=== PATIENT | female | born 1955 | race Hispanic/Latino ===

== ENCOUNTER 2017-06-26 09:13 | Outpatient (CLI) | payer OTHER ==
--- NOTE | 2017-06-26 12:09 | RAD ---
RIGHT SHOULDER THREE VIEWS: Comparison: 02-04-15 History: Pain. FINDINGS: There appears to be right rotator cuff repair and a remote right proximal humerus fracture. Previousl y noted lucency at the level of the greater tuberosity is not appreciated. There is a some sclerosis and remottling suggesting healing. No obvious dislocation. IMPRESSION: 1. Healed right greater tuberosity fracture. 2. Repair of a right rotator cuff. POS: [facility]
--- NOTE | 2017-06-26 15:02 | MRI ---
MR ARTHROGRAM RIGHT SHOULDER: DATE: 06/26/17. PROVIDED CLINICAL HISTORY: Right shoulder pain. FINDINGS: Comparison is made with the study dated 06/11/16. Interval postoperative changes of rotator cuff repair. Susceptibility artifact in the region of the greater tuberosity limits assessment. There is contrast containing fluid present within the subacrom ial/subdeltoid bursa that partially extends through the acromioclavicular interval. This appears to be on the basis of a small full-thickness partial width defect in the rotator interval medially near the posterior margin of the coracoid process. There is no evidence for a recurrent rotator cuff tear . The intraarticular long head biceps tendon is not visualized presumably on the basis of interval t enodesis. The glenoid labrum and glenohumeral articular cartilage appear preserved. Changes of interval acromi oplasty suspected. No focal concerning regional marrow or muscular signal abnormality apparent. IMPRESSION: 1. No evidence for recurrent full-thickness rotator cuff tear. 2. Small full-thickness partial width defect in the rotator interval. POS: OFF
== END 2017-06-26 09:14 | disposition home or self-care (01) ==
LOC: RAD 09:13
PROVIDERS: ATTEND Orthopaedic Surgery
DX: M25.511 Pain in right shoulder (principal); Z87.81 Personal history of (healed) traumatic fracture; Z98.890 Other specified postprocedural states
CPT/HCPCS: 23350

== ENCOUNTER 2017-08-10 13:26 | Outpatient (CLI) | payer OTHER ==
[2017-08-10 14:44] LABS: #Basophils 0.1 thou/uL (0.0-0.2); #Eosinphils 0.1 thou/uL (0.0-0.7); #Lymphocytes 3.3 thou/uL (1.20-3.40); #Monocytes 0.5 thou/uL (0.11-0.59); #Neutrophils 3.2 thou/uL (1.40-6.50); %Basophils 1.2 % (0.0-1.0); %Eosinophils 1.1 % (0.0-10.0); %Lymphocytes 46.7 % (21.0-51.0); %Monocytes 6.4 % (0.0-10.0); %Neutrophils 44.7 % (42.0-75.0); Hemoglobin 13.1 g/dL (12.0-16.0); Mean Corpuscular Hemoglobin 29.7 pg (27.0-31.0); Mean Platelet Volume 6.8 fL (7.4-10.4); Platelet Count 266 thou/uL (130-400); RBC Distribution Width 11.9 % (11.5-14.5); Red Blood Cell (RBC) Count 4.43 mill/uL (4.20-5.40); White Blood Cell (WBC) Count 7.2 thou/uL (4.8-10.8)
[2017-08-10 15:00] LABS: Anion Gap 11 mmol/L (10-20); BUN (Urea Nitrogen) 10 mg/dL (9.8-20.1); Calc. Creatinine Clearance 0 mL/min (70-130); Calcium 9.8 mg/dL (7.8-10.44); Carbon Dioxide 27 mmol/L (22-29); Chloride 107 mmol/L (98-107); Estimated GFR-MDRD 74; Glucose 99 mg/dL (70-105); Sodium 141 mmol/L (136-145)
--- NOTE | 2017-08-10 16:41 | EKG ---
Test Reason : Blood Pressure : / mmHG Vent. Rate : 060 BPM Atrial Rate : 060 BPM P-R Int : 120 ms QRS Dur : 088 ms QT Int : 452 ms P-R-T Axes : 014 059 014 degrees QTc Int : 452 ms Normal sinus rhythm T wave abnormality, consider anterior ischemia Abnormal ECG When compared with ECG of 07-JUL-2016 12:41, No significant change was found Confirmed by MORIAH RITCHIE ([id number]) on 08/10/2017 4:40:17 PM Referred By: FABIAN Confirmed By:MORIAH RITCHIE
== END 2017-08-10 13:27 | disposition home or self-care (01) ==
LOC: LABBT 13:26
PROVIDERS: ATTEND Orthopaedic Surgery
DX: Z01.818 Encounter for other preprocedural examination (principal); L90.5 Scar conditions and fibrosis of skin
CPT/HCPCS: 80048; 85025; 93005; 93010

== ENCOUNTER 2017-08-12 08:08 | Day surgery (SDC) | payer OTHER ==
[2017-08-10 13:56] VITALS: BMI 28.3
[2017-08-12] MEDS ORDERED: Midazolam HCl 2 mg/2 ml Vial ONE (09:26)
[2017-08-12] MEDS ORDERED: Fentanyl 100 MCG/2 ML VIAL ONE ×2 (09:26→10:05)
[2017-08-12] MEDS ORDERED: Ketorolac Tromethamine 30 MG/ML VIAL IVP PRN (09:51)
[2017-08-12] MEDS ORDERED: Ropivacaine HCl/PF 1,100 MG in Sodium Chloride 0.9% 440 ML NERVE BLCK SCH (09:51)
[2017-08-12] MEDS ORDERED: Ondansetron HCl/PF 4 MG/2 ML Vial IVP PRN (09:51)
[2017-08-12] MEDS ORDERED: HYDROcodone/Acetaminophen 10/325 mg Tablet PO PRN ×2 (09:51)
[2017-08-12] MEDS ORDERED: Promethazine HCl 25 MG/ML VIAL IM PRN (09:51)
[2017-08-12] MEDS ORDERED: traMADol HCl 50 MG TAB PO PRN ×2 (09:51)
[2017-08-12] MEDS ORDERED: Zolpidem Tartrate 5 MG TAB PO PRN (09:51)
[2017-08-12] MEDS ORDERED: Fentanyl 100 MCG/2 ML VIAL IV PRN (09:52)
[2017-08-12] MEDS ORDERED: Bupivacaine/Epinephrine 0.25% 30 ML VIAL ONE (10:48)
[2017-08-12] MEDS ORDERED: PROPOFOL 200 MG/20 ML VIAL ONE (11:50)
[2017-08-12] MEDS ORDERED: Lidocaine 1% PF 5 ML VIAL ONE (11:50)
[2017-08-12] MEDS ORDERED: Glycopyrrolate 0.2 MG/ML 5 ML SYRINGE ONE (11:50)
[2017-08-12] MEDS ORDERED: Dexamethasone 20 MG/5 ML VIAL ONE (11:50)
[2017-08-12] MEDS ORDERED: Ondansetron HCl/PF 4 MG/2 ML Vial ONE (11:50)
--- NOTE | 2017-08-12 12:30 | OP ---
DATE OF PROCEDURE: 08/12/2017 PREOPERATIVE DIAGNOSIS: Right shoulder pain, status post open rotator cuff repair. POSTOPERATIVE DIAGNOSIS: Right shoulder significant scar tissue, status post open cuff repair. PROCEDURE: Right shoulder arthroscopy with debridement and shaving of scar tissue. IMPLANTS: There were no implants used. DISPOSITION: She went to the recovery room in stable condition. ANESTHESIA: She had general anesthetic, she also had a preoperative block. INDICATIONS: Hannah is a 62-year-old female who a year ago underwent an open cuff repair, and at th is time, it was felt that she has some painful scar tissue which was keeping her from getting back to her normal self. At this time, she opted to have surgery. DESCRIPTION OF PROCEDURE: After both consent forms were explained and signed, she was taken to the o perating room and at this time was given general anesthetic. Once the level of anesthesia was approp riate, she was rolled into the left lateral decubitus position with all bony prominences well-padded. Axillary roll was placed into the left axilla. Ruiz bag was inflated to hold in this position. e arm was then suspended with 10 pounds in standard arthroscopic fashion after taking it through full range of motion. She was not noted to lack range of motion prior to surgery. Today as well as she had nice free range of motion. At this time, we then prepped and draped the right shoulder and upper extremity in standard surgical fashion. Bony anatomic landmarks were drawn out and subacromial spac e was infiltrated with Marcaine with epinephrine. Posterior portal was established and the scope was placed into the shoulder joint. Anterior working portal was made using a needle localization techni que. Diagnostic arthroscopy commenced. There was a tremendous amount of scar tissue in the joint. Most of it was from the labrum and from a remnant of the biceps tendon. Subscapularis was intact. T he articular surface of the humeral head and glenoid were in good condition. There were no loose bod ies noted and the shaver and surface energy were used to remove all significant scar tissue. At this time, scope was replaced into the subacromial space. Lateral working portal was made. Again, there was a copious amount of scar tissue, mostly in the subdeltoid gutters laterally anterior and posteri or, and again a combination of the shaver and surface energy were used to remove all the scar tissue. The rotator cuff itself was found to be intact. The sutures had synovialized and once the scar tis marija was removed, there was no other treatment needed. At this time, scope was removed, shoulder was drained, and the portals were closed with a simple suture. A bulky sterile dressing was applied and the patient was then awakened and taken to the recovery room in stable condition. All counts were co rrect at the end of the case and she did receive preoperative IV antibiotics.
[2017-08-12] MEDS ORDERED: Ropivacaine 0.5% HCl/PF (150 MG/30 ML VIAL) ONE (12:54)
[2017-08-12] MEDS ORDERED: Ropivacaine 0.2% HCl/PF (40 MG/20 ML VIAL) ONE (12:54)
== END 2017-08-12 14:15 | disposition home or self-care (01) ==
LOC: SDC 08:08
PROVIDERS: ATTEND Orthopaedic Surgery
PROC: 0RBJ4ZZ Excision of Right Shoulder Joint, Percutaneous Endoscopic Approach (ICD-10-PCS; principal; 2017-08-12)
DX: M25.811 Other specified joint disorders, right shoulder (principal); I10 Essential (primary) hypertension; Z98.890 Other specified postprocedural states; Z79.899 Other long term (current) drug therapy
CPT/HCPCS: J1100; J2001; J2250; J2405; J2704; J2795; J3010; J7050